=== PATIENT | male | born 1965 | race Caucasian/White ===

== ENCOUNTER 2016-05-08 12:18 | Outpatient (CLI) | payer OTHER, MEDICARE | END 2016-05-08 12:20 | LOC: LAB 12:18 | PROVIDERS: ATTEND Internal Medicine Nephrology | DX: J11.1 Influenza due to unidentified influenza virus with other respiratory manifestations (principal) | CPT/HCPCS: 87400 ==

== ENCOUNTER 2016-08-12 11:58 | Outpatient (CLI) | payer OTHER, MEDICARE ==
[2016-08-12 12:44] LABS: eGFR (African) 21; eGFR (Non-African) 18
== END 2016-08-12 12:00 ==
LOC: LAB 11:58
PROVIDERS: ATTEND Internal Medicine
DX: N18.6 End stage renal disease (principal); R10.9 Unspecified abdominal pain; K80.50 Calculus of bile duct without cholangitis or cholecystitis without obstruction
CPT/HCPCS: 36415; 80053

== ENCOUNTER 2017-11-29 15:51 | Emergency (ER) | payer OTHER, MEDICARE ==
[2017-11-29] MEDS ORDERED: ASPIRIN 81 MG CHEW TAB PO ONE (15:56)
--- NOTE | 2017-11-29 15:56 | ED Physician Documentation ---
Chest Pain - HISTORIAN Historian: patient - HPI Stated Complaint: chest pain and shortness of at around 330 pm Chief Complaint: Chest Pain Onset: hours (1) Timing: sudden onset, resolved on arrival to ED Duration: other (improving now ) Last known Well Date: 11/29/17 Last Known Well Time: 15:30 Last known Well Code/Unknown Code: Unknown Context: other (he was just getting off work ) Severity: moderate Quality: pressure, dull Chest Pain Radiation: no radiation Chest Pain Signs/Symptoms: nausea, dyspnea Relieved By: other (now improved ) Further Comments: yes (He states at around 330 pm he started to have shortness of air, nausea and chest pain for about 30 min and just prior to arrival in the ER he states he started to have less chest pain and at this time he denies any shortness of breath or nauesea and his chest pain "is almost gone" . He is a diaylisis pt and he was treated yesterday. 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 He did take his medications today right before coming to the ER) - ROS CONST: none - PAST HX RI risk factors: hypertension, other (CKD ) DVT/PE Risk Factors: prior DVT TAD/AAA risk factors: none Neuro deficit: none GI disease: dialysis Lung disease: none Surgeries/Procedures: other (emily,clot removal - open shunt August 2017 and hip surgery as a child ) Allergies/Adverse Reactions: Allergies Allergy/AdvReac Type Severity Reaction Status Date / Time lisinopril Allergy Verified 11/29/17 16:31 adhesive tape AdvReac Generalized Verified 11/29/17 16:31 Redness - SOCIAL HX Smoking History: cigarettes Alcohol Use: none Drug Use: none - FAMILY HX Family HX: none - REVIEWED ASSESSMENTS Nursing Assessment Reviewed: Yes Vitals Reviewed: Yes Progress - Progress Progress: 1715: Discussed case with DR Morfin. Labs due to known blood clot and dialysis pt DG 1740: states chest pain has resolved. No shortness of breath . No other pain DG Chest Pain Physical Exam - EXAM General Appearance: no acute distress, alert EENT: eye inspection normal, ENT inspection normal, no signs of dehydration Neck: nml inspection Respiratory: no resp. distress, chest non-tender, nml breath sounds CVS: reg. rate & rhythm, no murmur Abdomen: soft, no distension, non-tender, abnormal bowel sounds (hyperactive bowel sounds ) Skin: warm/dry, normal color, other (left upper arm with swelling from old shunt he states is a blood clot he is aware of ) Extremities: non-tender, normal range of motion, no evidence of injury, no edema Neuro: oriented X3, CN's nml as tested, motor nml, sensation nml, mood/affect nml, cognition normal Discharge Clincal Impression: Chest pain Qualifiers: Chest pain type: unspecified Qualified Code(s): R07.9 - Chest pain, unspecified Referrals: Sharlene Bagley MD [STAFF PHYSICIAN] - 2 Days Comments: 1. Follow up with PCP on Friday 2. Continue home meds 3. Return to ER for any concerns Condition: Stable Disposition: 01 HOME, SELF-CARE Decision to Admit: NO Date of Decison to Admit: 11/29/17 Decision Time: 17:45
[2017-11-29 18:51] LABS: BASO % 0.2 % (0.0-1.5); EOS % 1.8 % (0.0-6.8); LYMPH ABS # 1.19 thou/uL (0.60-4.00); MCH. 31.9 pg (28.0-34.0); MCV 93.7 fL (80.0-100.0); MONOCYTE % 8.1 % (0.0-11.0); PLATELET COUNT 231 thou/uL (130-400)
[2017-11-29 18:59] VITALS: BP 145/101
== END 2017-11-29 17:50 | disposition home or self-care (01) ==
LOC: ED 15:51
DX: R07.9 Chest pain, unspecified (principal)
CPT/HCPCS: 80053; 82550; 84484; 85025; 85379

== ENCOUNTER 2017-12-05 12:17 | Outpatient (CLI) | payer OTHER, MEDICARE ==
--- NOTE | 2017-12-05 21:50 | Diagnostic Imaging Report ---
GERSON CASTELLANOS [facility] [id number] [facility].[address] [id number] Report Submission Date: Dec 05, 2017 12:43:31 PM CDT Patient Study Name: FERNANDO BANKS Date: Dec 05, 2017 12:22:15 PM CDT Modality Type: DX Gender: M Description: CHEST : 69 Institution: [facility] Physician: GERSON CASTELLANOS PA and lateral chest History: Cough for 1 week PA and lateral chest dated December 05, 2017 is without prior radiographs for comparison. The cardiomediastinal silhouette is normal. There is a large bore central line with the tip projecting over the distal superior vena cava. There is no pneumothorax, pleural effusion or infiltrate. Impression: No active disease. Electronically signed on Dec 05, 2017 12:43:31 PM CDT by: Leah BYNUM
== END 2017-12-05 12:18 ==
LOC: RAD 12:17
PROVIDERS: ATTEND Internal Medicine Nephrology
DX: R06.9 Unspecified abnormalities of breathing (principal)
CPT/HCPCS: 71046

== ENCOUNTER 2018-01-15 11:42 | Outpatient (CLI) | payer MEDICARE, OTHER ==
[2018-01-15 15:10] LABS: eGFR (Non-African) > 60
[2018-01-15 15:13] LABS: MEAN CORPUSCULAR HEMOGLOBIN 30.6 pg (28.0-34.0)
[2018-01-15 15:14] LABS: BASOPHILS % 0.1 (0.0-1.5); EOSINOPHILS % 2.2 % (0.0-6.8); NEUTROPHILS # 6.5 # k/uL (1.4-7.7)
[2018-01-15 15:15] LABS: ANISOCYTOSIS 1+ (NEGATIVE); OVALOCYTES 1+ (NEGATIVE); PLT EST. EST. AGREES W/PLT CT
== END 2018-01-15 15:29 ==
LOC: LAB 11:42
PROVIDERS: ATTEND Clinical Nurse Specialist Adult Health
DX: Z94.0 Kidney transplant status (principal)
CPT/HCPCS: 36415; 80053; 85025

== ENCOUNTER 2018-01-22 08:22 | Outpatient (CLI) | payer MEDICARE, OTHER ==
[2018-01-22 08:44] LABS: BASOPHILS % 0.1 (0.0-1.5); EOSINOPHILS % 2.9 % (0.0-6.8); MEAN CORPUSCULAR HEMOGLOBIN 31.4 pg (28.0-34.0); MONOCYTES % 4.4 % (0.0-11.0); NEUTROPHILS # 6.6 # k/uL (1.4-7.7)
[2018-01-22 14:00] LABS: eGFR (Non-African) > 60
== END 2018-01-22 08:23 ==
LOC: LAB 08:22
PROVIDERS: ATTEND Clinical Nurse Specialist Adult Health
DX: Z94.0 Kidney transplant status (principal)
CPT/HCPCS: 36415; 80053; 85025

== ENCOUNTER 2018-02-09 10:10 | Outpatient (CLI) | payer MEDICARE, OTHER ==
[2018-02-09 12:12] LABS: MEAN CORPUSCULAR HEMOGLOBIN 31.3 pg (28.0-34.0)
[2018-02-09 12:13] LABS: BASOPHILS % 0.2 (0.0-1.5); EOSINOPHILS % 1.9 % (0.0-6.8); MONOCYTES % 5.9 % (0.0-11.0); NEUTROPHILS # 5.9 # k/uL (1.4-7.7)
[2018-02-09 12:49] LABS: eGFR (Non-African) > 60
== END 2018-02-09 10:12 ==
LOC: LAB 10:10
PROVIDERS: ATTEND Clinical Nurse Specialist Adult Health
DX: Z94.0 Kidney transplant status (principal)
CPT/HCPCS: 36415; 80053; 85025

== ENCOUNTER 2018-02-23 12:20 | Outpatient (CLI) | payer MEDICARE, OTHER ==
[2018-02-23 12:47] LABS: MEAN CORPUSCULAR HEMOGLOBIN 32.3 pg (28.0-34.0)
[2018-02-23 12:48] LABS: BASOPHILS % 0.2 (0.0-1.5); MONOCYTES % 4.4 % (0.0-11.0); NEUTROPHILS # 5.6 # k/uL (1.4-7.7)
[2018-02-23 13:01] LABS: eGFR (Non-African) > 60
== END 2018-02-23 12:22 ==
LOC: LAB 12:20
PROVIDERS: ATTEND Clinical Nurse Specialist Adult Health
DX: Z94.0 Kidney transplant status (principal)
CPT/HCPCS: 36415; 80053; 85025

== ENCOUNTER 2018-03-02 12:23 | Outpatient (CLI) | payer MEDICARE, OTHER ==
[2018-03-02 13:04] LABS: BASOPHILS % 0.2 (0.0-1.5); EOSINOPHILS % 2.3 % (0.0-6.8); MEAN CORPUSCULAR HEMOGLOBIN 32.5 pg (28.0-34.0); MONOCYTES % 4.2 % (0.0-11.0); NEUTROPHILS # 6.3 # k/uL (1.4-7.7)
[2018-03-02 13:15] LABS: eGFR (Non-African) > 60
== END 2018-03-02 12:25 ==
LOC: LAB 12:23
PROVIDERS: ATTEND Clinical Nurse Specialist Adult Health
DX: Z94.0 Kidney transplant status (principal)
CPT/HCPCS: 36415; 80053; 85025

== ENCOUNTER 2018-03-16 11:58 | Outpatient (CLI) | payer MEDICARE, OTHER ==
[2018-03-16 12:33] LABS: EOSINOPHILS % 2.8 % (0.0-6.8); MEAN CORPUSCULAR HEMOGLOBIN 31.4 pg (28.0-34.0); MONOCYTES % 5.1 % (0.0-11.0)
[2018-03-16 12:34] LABS: BASOPHILS % 0.3 (0.0-1.5); NEUTROPHILS # 5.7 # k/uL (1.4-7.7)
[2018-03-16 12:46] LABS: eGFR (Non-African) > 60
== END 2018-03-16 12:00 ==
LOC: LAB 11:58
PROVIDERS: ATTEND Clinical Nurse Specialist Adult Health
DX: Z94.0 Kidney transplant status (principal)
CPT/HCPCS: 36415; 80053; 85025

== ENCOUNTER 2018-04-06 11:54 | Outpatient (CLI) | payer MEDICARE, OTHER ==
[2018-04-06 12:26] LABS: BASOPHILS % 0.3 (0.0-1.5); EOSINOPHILS % 3.4 % (0.0-6.8); MEAN CORPUSCULAR HEMOGLOBIN 31.8 pg (28.0-34.0); MONOCYTES % 7.4 % (0.0-11.0); NEUTROPHILS # 5.6 # k/uL (1.4-7.7)
[2018-04-06 12:32] LABS: eGFR (Non-African) > 60
== END 2018-04-06 12:00 ==
LOC: LAB 11:54
PROVIDERS: ATTEND Clinical Nurse Specialist Adult Health
DX: Z94.0 Kidney transplant status (principal)
CPT/HCPCS: 36415; 80053; 85025

== ENCOUNTER 2018-04-27 13:20 | Outpatient (CLI) | payer MEDICARE, OTHER ==
[2018-04-27 13:39] LABS: BASOPHILS % 0.4 (0.0-1.5); EOSINOPHILS % 2.3 % (0.0-6.8); MEAN CORPUSCULAR HEMOGLOBIN 32.7 pg (28.0-34.0); MONOCYTES % 6.6 % (0.0-11.0); NEUTROPHILS # 4.7 # k/uL (1.4-7.7)
[2018-04-27 14:02] LABS: eGFR (Non-African) > 60
== END 2018-04-27 13:30 ==
LOC: LAB 13:20
PROVIDERS: ATTEND Clinical Nurse Specialist Adult Health
DX: Z94.0 Kidney transplant status (principal)
CPT/HCPCS: 36415; 80053; 85025

== ENCOUNTER 2018-05-04 10:33 | Outpatient (CLI) | payer MEDICARE, OTHER ==
[2018-05-04 10:51] LABS: BASOPHILS % 0.3 (0.0-1.5); EOSINOPHILS % 2.9 % (0.0-6.8); MEAN CORPUSCULAR HEMOGLOBIN 32.4 pg (28.0-34.0); MONOCYTES % 6.2 % (0.0-11.0)
[2018-05-04 11:27] LABS: eGFR (Non-African) > 60
== END 2018-05-04 10:35 ==
LOC: LAB 10:33
PROVIDERS: ATTEND Clinical Nurse Specialist Adult Health
DX: Z94.0 Kidney transplant status (principal)
CPT/HCPCS: 36415; 80053; 85025

== ENCOUNTER 2018-05-11 12:17 | Outpatient (CLI) | payer MEDICARE, OTHER ==
[2018-05-11 12:56] LABS: BASOPHILS % 0.4 (0.0-1.5); EOSINOPHILS % 2.9 % (0.0-6.8); MEAN CORPUSCULAR HEMOGLOBIN 32.1 pg (28.0-34.0); MONOCYTES % 5.8 % (0.0-11.0); NEUTROPHILS # 6.6 # k/uL (1.4-7.7)
[2018-05-11 13:09] LABS: eGFR (Non-African) > 60
== END 2018-05-11 12:19 ==
LOC: LAB 12:17
PROVIDERS: ATTEND Clinical Nurse Specialist Adult Health
DX: Z94.0 Kidney transplant status (principal)
CPT/HCPCS: 36415; 80053; 85025

== ENCOUNTER 2018-06-01 13:01 | Outpatient (CLI) | payer MEDICARE, OTHER ==
[2018-06-01 13:31] LABS: MEAN CORPUSCULAR HEMOGLOBIN 32.3 pg (28.0-34.0)
[2018-06-01 13:32] LABS: BASOPHILS % 0.5 (0.0-1.5); EOSINOPHILS % 3.2 % (0.0-6.8)
[2018-06-01 14:17] LABS: eGFR (Non-African) > 60
== END 2018-06-01 13:03 ==
LOC: LAB 13:01
PROVIDERS: ATTEND Internal Medicine Nephrology
DX: Z94.0 Kidney transplant status (principal)
CPT/HCPCS: 36415; 80053; 80197; 85025

== ENCOUNTER 2018-06-08 11:50 | Outpatient (CLI) | payer MEDICARE, OTHER ==
[2018-06-08 12:28] LABS: eGFR (Non-African) > 60
[2018-06-08 12:42] LABS: MEAN CORPUSCULAR HEMOGLOBIN 31.9 pg (28.0-34.0)
[2018-06-08 12:43] LABS: BASOPHILS % 1 % (0-2); EOSINOPHILS % 2 % (0-7); MONOCYTES % 7 % (0-11); SEGMENTED NEUTROPHILS % 82 % (39-79)
== END 2018-06-08 11:53 ==
LOC: LAB 11:50
PROVIDERS: ATTEND Internal Medicine Nephrology
DX: Z94.0 Kidney transplant status (principal)
CPT/HCPCS: 36415; 80053; 80197; 85025

== ENCOUNTER 2018-09-10 10:51 | Outpatient (CLI) | payer MEDICARE, OTHER ==
[2018-09-21 09:18] LABS: eGFR (Non-African) > 60
[2018-09-21 09:19] LABS: BASOPHILS % 0.4 % (0.0-1.5); NEUTROPHILS # 4.8 # k/uL (1.4-7.7)
== END 2018-09-10 10:53 ==
LOC: LAB 10:51
PROVIDERS: ATTEND Clinical Nurse Specialist Adult Health
DX: Z94.0 Kidney transplant status (principal)
CPT/HCPCS: 36415; 80053; 80197; 85025